=== PATIENT | female | born 1950 | race Caucasian/White ===

== ENCOUNTER → 2020-11-28 | Outpatient (CLI) | payer MEDICARE, OTHER ==
[~2020-11-28] VITALS: Ht 167.6 cm; Wt 49.5 kg
[~2020-11-28] MED LIST: ASPI81TA45 PO; ATOR10TA9 PO; CHOL10003 PO; LEVO25TA4 PO; MAGN250T8 PO; RABE20TA18 PO; Vitamin B12 PO
[2020-11-28 15:18] LABS: BASOPHILS % (AUTO) 1 % (0-1); EOSINOPHILS % (AUTO) 4 % (1-7); LYMPHOCYTES % (AUTO) 32 % (22-44); MEAN CORPUSCULAR HGB CONC 33.6 g/dL (32.4-35.8); MEAN PLATELET VOLUME 9.4 fL (7.4-10.4); MONOCYTES % (AUTO) 5 % (2-9); NEUTROPHILS % (AUTO) 58 % (42-75); PLATELET COUNT 224 x10^3/uL (130-400); RED BLOOD COUNT 4.22 x10^6/uL (3.82-5.3); RED CELL DISTRIBUTION WIDTH 13.2 % (9.6-15.2)
[2020-11-28 15:30] LABS: PROTHROMBIN TIME 10.7 Seconds (9.6-11.5)
== END | disposition home or self-care (01) ==
LOC: STAR 08:00 → EDSTATUS 12-01 12:30
PROVIDERS: ATTEND Internal Medicine
DX: R04.2 Hemoptysis (principal); R22.2 Localized swelling, mass and lump, trunk; I48.91 Unspecified atrial fibrillation; J32.9 Chronic sinusitis, unspecified; J30.9 Allergic rhinitis, unspecified; Z20.822 Contact with and (suspected) exposure to COVID-19; Z79.82 Long term (current) use of aspirin; Z79.890 Hormone replacement therapy; Z79.899 Other long term (current) drug therapy; Z88.8 Allergy status to other drugs, medicaments and biological substances; Z80.1 Family history of malignant neoplasm of trachea, bronchus and lung; Z82.49 Family history of ischemic heart disease and other diseases of the circulatory system
CPT/HCPCS: 36415; 71250; 85025; 85610; 85730; U0003

== ENCOUNTER → 2021-01-12 | Outpatient (CLI) | payer MEDICARE, OTHER | END | disposition home or self-care (01) | LOC: CFH 08:23 | PROVIDERS: ATTEND Internal Medicine | DX: R91.8 Other nonspecific abnormal finding of lung field (principal); R04.2 Hemoptysis; J47.9 Bronchiectasis, uncomplicated; K76.89 Other specified diseases of liver; G95.89 Other specified diseases of spinal cord | CPT/HCPCS: 71250 ==

== ENCOUNTER → 2021-01-19 | Outpatient (CLI) | payer MEDICARE, OTHER ==
[~2021-01-19] MED LIST changes: +FLUT9.9S NAS; +L.AC1CAP6 PO
== END | disposition home or self-care (01) ==
LOC: STAR 12:04
PROVIDERS: ATTEND Internal Medicine
DX: Z01.812 Encounter for preprocedural laboratory examination (principal); Z20.822 Contact with and (suspected) exposure to COVID-19; R91.8 Other nonspecific abnormal finding of lung field; I44.4 Left anterior fascicular block; I25.2 Old myocardial infarction
CPT/HCPCS: 93005; U0003; U0005

== ENCOUNTER 2021-01-24 06:57 | Day surgery (SDC) | payer MEDICARE, OTHER ==
[~2021-01-24] VITALS: Ht 167.6 cm; Wt 48.5 kg
[2021-01-24 07:27] VITALS: BP 123/76
[2021-01-24] MEDS ORDERED: CHLORHEXIDINE 15 ML UDC ONE (07:28)
[2021-01-24] MEDS ORDERED: LACTATED RINGERS 1,000 ML IV SCH (07:30)
[2021-01-24] MEDS ORDERED: CHLORHEXIDINE 15 ML UDC PO ONE (07:30)
[2021-01-24] MEDS ORDERED: FENTANYL PF 250 MCG/5ML ONE (08:37)
[2021-01-24] MEDS ORDERED: MIDAZOLAM 1 MG/ML, 2ML ONE (08:37)
[2021-01-24] MEDS ORDERED: PROPOFOL 50 ML ONE ×2 (08:40→10:14)
[2021-01-24] MEDS ORDERED: ONDANSETRON 2MG/ML, 2ML IVPush PRN (10:00)
[2021-01-24] MEDS ORDERED: HYDROmorphone 1 MG/ML, 1ML INJ IVPush PRN (10:00)
[2021-01-24] MEDS ORDERED: FENTANYL PF 100 MCG/2ML IV PRN (10:00)
[2021-01-24] MEDS ORDERED: OXYcodone 5 MG/5 ML ORAL.SOL UDC PO PRN (10:00)
[2021-01-24] MEDS ORDERED: MEPERIDINE/PF 25MG/0.5ML IVPush PRN (10:00)
[2021-01-24] MEDS ORDERED: LABETALOL 5MG/ML, 20ML IV PRN (10:00)
[2021-01-24] MEDS ORDERED: hydrALAzine 20 MG/ML, 1ML IV PRN (10:00)
[2021-01-24] MEDS ORDERED: ACETAMINOPHEN 325 MG TABLET PO PRN (10:00)
[2021-01-24] MEDS ORDERED: PROPOFOL 10 MG/ML, 20ML ONE (10:15)
[2021-01-24] MEDS ORDERED: SUCCINYLCHOLINE 20 MG/ML, 10ML ONE (10:15)
[2021-01-24] MEDS ORDERED: LIDOCAINE-MPF 2% ,5ML ONE (10:15)
== END 2021-01-24 12:55 | disposition home or self-care (01) ==
LOC: OUT 06:57
PROVIDERS: ATTEND Internal Medicine
DX: R91.8 Other nonspecific abnormal finding of lung field (principal); R04.2 Hemoptysis; G43.909 Migraine, unspecified, not intractable, without status migrainosus; M81.0 Age-related osteoporosis without current pathological fracture; I48.91 Unspecified atrial fibrillation; I10 Essential (primary) hypertension; E78.5 Hyperlipidemia, unspecified; Z88.1 Allergy status to other antibiotic agents; Z88.8 Allergy status to other drugs, medicaments and biological substances; Z90.49 Acquired absence of other specified parts of digestive tract; Z98.890 Other specified postprocedural states; Z72.89 Other problems related to lifestyle; Z79.82 Long term (current) use of aspirin; Z79.899 Other long term (current) drug therapy; Z79.01 Long term (current) use of anticoagulants
CPT/HCPCS: 31624; 31627; 31628; 31629; 71045; 88112; 88172; 88173; 88177; 88305; J0330; J2250; J2704; J3010; J7120; 76000

== ENCOUNTER 2021-01-25 07:16 | Emergency (ER) | payer MEDICARE, OTHER ==
[~2021-01-25] VITALS: Ht 167.6 cm; Wt 49.1 kg
--- NOTE | 2021-01-25 07:31 | NUR ---
PATIENT WALKED BACK FROM TRIAGE WITH CHIEF C/O RIGHT SIDED CHEST PAIN FOLLOWING LUNG BX DONE YESTERDAY. PER PATIENT THEY TOLD HER THEY MAY HAVE NICKED HER DIAPHRAM YESTERDAY. PATIENT ALSO WORRIED HER LUNG MIGHT BE COLLAPSED DUE TO HAVING A HARD TIME CATCHING HER BREATH AND LAYING FLAT WITHOUT PAIN AND STATES "I HEAR A CLICKING SOUND." BOTH LUNGS ARE CLEAR AND MOVING AIR UPON AUSCULTATION. CONNECTED TO MONITOR, VSS, SPOUSE AT BEDSIDE, CALL LIGHT WITHIN REACH.
--- NOTE | 2021-01-25 07:48 | NUR ---
ERMD AT BEDSIDE FOR EVALUATION.
[2021-01-25] MEDS ORDERED: ACETAMINOPHEN 500 MG TABLET PO ONE (08:00)
[2021-01-25] MEDS ORDERED: ACETAMINOPHEN 500 MG TABLET ONE (08:00)
[2021-01-25 08:06] VITALS: BP 131/64
== END 2021-01-25 08:40 | disposition home or self-care (01) ==
LOC: ED 08:06
DX: R07.89 Other chest pain (principal); R94.31 Abnormal electrocardiogram [ECG] [EKG]
CPT/HCPCS: 71045; 93005; 99283

== ENCOUNTER → 2021-01-25 | Outpatient (CLI) | payer MEDICARE, OTHER | END | disposition home or self-care (01) | LOC: PETCFH 09:20 | PROVIDERS: ATTEND Internal Medicine | DX: J84.10 Pulmonary fibrosis, unspecified (principal); R91.1 Solitary pulmonary nodule; J93.9 Pneumothorax, unspecified | CPT/HCPCS: 78815; A9552 ==